=== PATIENT | male | born 1985 | race American Indian/Alaskan Native ===

== ENCOUNTER 2016-10-29 13:16 | Emergency (ER) | payer OTHER, BC ==
[2016-10-29 20:28] VITALS: BP 124/75
[2016-10-29] MEDS ORDERED: NORCO 5/325 PO ONE (20:44)
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
== END 2016-10-29 21:01 | disposition home or self-care (01) ==
LOC: ED 13:16
DX: R07.9 Chest pain, unspecified (principal); M54.5 Low back pain; M25.562 Pain in left knee; V89.2XXA Person injured in unspecified motor-vehicle accident, traffic, initial encounter; Y93.89 Activity, other specified; Y99.9 Unspecified external cause status; Y92.410 Unspecified street and highway as the place of occurrence of the external cause
CPT/HCPCS: 99282